=== PATIENT | male | born 1980 | race Caucasian/White ===

== ENCOUNTER 2023-04-01 09:40 | Outpatient (CLI) | payer BC, OTHER ==
[2023-04-01] MEDS ORDERED: Iopamidol 300 61% 100 ML VIAL FS ONE (14:21)
== END 2023-04-01 09:41 | disposition home or self-care (01) ==
LOC: CSHCT 09:40
PROVIDERS: ATTEND Family Medicine
DX: R10.9 Unspecified abdominal pain (principal)
CPT/HCPCS: 74178; Q9967